=== PATIENT | female | born 2000 | race American Indian/Alaskan Native ===

== ENCOUNTER 2020-01-03 04:31 | Inpatient (IN) | payer MEDICAID ==
[2020-01-03] MEDS ORDERED: Nalbuphine 10 MG/ML Syringe IVPUSH PRN (18:44)
[2020-01-03] MEDS ORDERED: Sodium Chloride 0.9% 10 ML Syringe FLUSH PRN (18:44)
[2020-01-03] MEDS ORDERED: Ondansetron 4 MG/2 ML SDV IVPUSH PRN (18:44)
[2020-01-03] MEDS ORDERED: Oxytocin/Lactated Ringers 10 UNIT/1,000 ML BAG IV SCH ×2 (18:45)
--- NOTE | 2020-01-03 18:53 | PCM.LDHP ---
L&D History of Present Illness - General Date of Service: 01/03/20 Admit Problem/Dx: Patient Status Order with Admit Dx/Problem 01/03/20 18:44 Patient Status [ADT] Routine Admission Diagnosis/Problem Admission Diagnosis/Problem Abnormal quad screen Source of Information: Patient History Limitations: Reports: No Limitations - History of Present Illness Introduction:: Patient is a 19 y/o at 39 4/7 wks presents for IOL. In had an abnormal quad screen showing increased risk for Down Syndrome. Follow up MFM ultrasound and NIPS were normal. Early in there was concern for possible growth restriction, but most recent scans were normal. Patient doing well today. Good FM. 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 LMP (Approximate): Psychiatric History: Reports: Anxiety, Depression - Past Surgical History Other Surgical History Comment: No past surgical history Social & Family History - Family History Family Medical History: Noncontributory - Tobacco Use Smoking Status *Q: Never Smoker - Caffeine Use Caffeine Use: Reports: Coffee - Alcohol Use Alcohol Use History: No - Recreational Drug Use Recreational Drug Use: Yes Drug Use in Last 12 Months: No Recreational Drug Type: Reports: Marijuana/Hashish H&P Review of Systems - Review of Systems: Review Of Systems: See Below General: Reports: No Symptoms Pulmonary: Reports: No Symptoms Cardiovascular: Reports: No Symptoms Gastrointestinal: Reports: No Symptoms Genitourinary: Reports: No Symptoms Musculoskeletal: Reports: No Symptoms Psychiatric: Reports: No Symptoms Neurological: Reports: No Symptoms L&D Exam - Exam Exam: See Below - OB Specific Contraction Intensity: Irritability Movement: Active Heart Tones: Present Heart Tones per Min: 140 Heart Rate (FHR) Variability: Moderate (6-25 bmp) Presentation: Vertex - Kerns Score Kerns Score Cervix Position: Posterior Kerns Score Consistency: Soft Kerns Score Effacement: 51-70% Kerns Score Dilation: 1-2 cm Kerns Score Infant's Station: -2 Kerns Score Total: 6 - Exam General: Alert, Oriented, Cooperative Lungs: Clear to Auscultation, Normal Respiratory Effort Cardiovascular: Regular Rate, Regular Rhythm GI/Abdominal Exam: Soft, Non-Tender Genitourinary: Normal external exam Extremities: Normal Inspection Skin: Warm, Dry, Intact - Patient Data Result Diagrams: 01/03/20 19:10 - Problem List (1) 39 weeks gestation of SNOMED Code(s): 39535157 ICD Code: Z3A.39 - 39 WEEKS GESTATION OF Status: Acute Current Visit: Yes (2) Abnormal quad screen SNOMED Code(s): 301549893, 772869472 ICD Code: O28.0 - ABNORMAL HEMATOLOG FINDING ON SCREENING OF MOTHER Status: Acute Current Visit: Yes Problem List Initiated/Reviewed/Updated: Yes Orders Last 24hrs: Active Orders 24 hr Category Date Time Status Patient Status [ADT] Routine ADT 01/03/20 18:44 Ordered Communication Order [RC] ASDIRECTED Care 01/03/20 18:44 Ordered Communication Order [RC] ASDIRECTED Care 01/03/20 18:44 Ordered Communication Order [RC] ASDIRECTED Care 01/03/20 18:44 Ordered Heart Tones [RC] ASDIRECTED Care 01/03/20 18:45 Ordered Monitoring [RC] INTERMITTENT Care 01/03/20 18:44 Ordered Non Stress Test [RC] PER UNIT ROUTINE Care 01/03/20 18:44 Ordered Notify Provider [RC] ASDIRECTED Care 01/03/20 18:44 Ordered Notify Provider [RC] PRN Care 01/03/20 18:44 Ordered Peripheral IV Care [RC] . DIRECTED Care 01/03/20 18:45 Ordered Up ad Luly [RC] ASDIRECTED Care 01/03/20 18:45 Ordered Vaginal Exam [RC] ASDIRECTED Care 01/03/20 18:44 Ordered Vital Signs [RC] ASDIRECTED Care 01/03/20 18:44 Ordered Regular Diet [DIET] Diet 01/03/20 Dinner Ordered CBC W/O DIFF,HEMOGRAM [HEME] Routine Lab 01/03/20 18:44 Ordered RAPID PLASMA REAGIN,RPR [CHEM] Routine Lab 01/03/20 18:44 Ordered TYPE AND SCREEN [BBK] Routine Lab 01/03/20 18:44 Ordered Lactated Ringers [Ringers, Lactated] 1,000 ml Med 01/03/20 18:45 Ordered IV ASDIRECTED Nalbuphine [Nubain] Med 01/03/20 18:44 Ordered 10 mg IVPUSH Q2H PRN Ondansetron [Zofran] Med 01/03/20 18:44 Ordered 4 mg IVPUSH Q4H PRN Oxytocin/Lactated Ringers [Pitocin in LR 10 Units/1,000 Med 01/03/20 18:45 Ordered ML] 10 unit in 1,000 ml IV .CONTINUOUS Oxytocin/Lactated Ringers [Pitocin in LR 10 Units/1,000 Med 01/03/20 18:45 Ordered ML] 10 unit in 1,000 ml IV TITRATE Sodium Chloride 0.9% [Saline Flush] Med 01/03/20 18:44 Ordered 10 ml FLUSH ASDIRECTED PRN Electronic Heart Tones Ext w TOCO [WOMSER] Oth 01/03/20 18:44 Ordered Routine Electronic Heart Tones Internal [WOMSER] Per Unit Oth 01/03/20 18:44 Ordered Routine Peripheral IV Insertion Adult [OM.PC] Routine Oth 01/03/20 18:44 Ordered Resuscitation Status Routine Resus Stat 01/03/20 18:44 Ordered Assessment/Plan Comment:: 19 y/o at 39 4/7 wks presents for IOL for abnormal quad screen * Labs done * GBS negative * Krishnamurthy bulb placed. Will also start pitocin. Will AROM once krishnamurthy bulb out * Pain management per patient preference * Anticipate
[2020-01-03] MEDS: Lactated Ringers 1,000 ML IV SCH (20:38)
[2020-01-03] MEDS ORDERED: fentaNYL 100 MCG/2 ML SDV ONE (23:11)
[2020-01-03] MEDS ORDERED: diphenhydrAMINE 50 MG/ML SDV IVPUSH PRN (23:23)
[2020-01-03] MEDS ORDERED: Bupivacaine/fentaNYL/NS 100 ML Bag EPIDUR PRN (23:23)
[2020-01-03] MEDS ORDERED: fentaNYL 100 MCG/2 ML SDV EPIDUR PRN (23:23)
[2020-01-03] MEDS ORDERED: ePHEDrine 50 MG/ML SDV IVPUSH PRN (23:23)
[2020-01-04] MEDS ORDERED: Bupivacaine 0.25% 10 ML SDV ONE
--- NOTE | 2020-01-04 00:30 | PCM.PREANE ---
Preanesthetic Assessment - Procedure Proposed Procedure: jameel - Anesthesia/Transfusion/Family Hx Anesthesia History: Prior Anesthesia Without Reaction Family History of Anesthesia Reaction: No Transfusion History: No Prior Transfusion(s) - Review of Systems General: No Symptoms Pulmonary: No Symptoms Cardiovascular: No Symptoms Gastrointestinal: No Symptoms Neurological: No Symptoms Other: Reports: Anxiety - Physical Assessment Vital Signs: Last Vital Signs Temp 98.1 F 01/03/20 21:00 Pulse 78 01/03/20 21:00 Resp 16 01/03/20 21:00 BP 128/73 01/03/20 21:00 Pulse Ox Height: 5 ft 2 in Weight: 75.75 kg ASA Class: 2 Mental Status: Alert & Oriented x3 Airway Class: Mallampati = 1 Dentition: Reports: Normal Dentition Thyro-Mental Finger Breadths: 3 Mouth Opening Finger Breadths: 3 ROM/Head Extension: Full Lungs: Clear to Auscultation, Normal Respiratory Effort Cardiovascular: Regular Rate, Regular Rhythm - Lab Values: Laboratory Last Values WBC 10.65 K/mm3 (3.98-10.04) H 01/03/20 19:10 RBC 4.63 M/mm3 (3.98-5.22) 01/03/20 19:10 Hgb 11.7 gm/dl (11.2-15.7) 01/03/20 19:10 Hct 36.9 % (34.1-44.9) 01/03/20 19:10 MCV 79.7 fl (79.4-94.8) 01/03/20 19:10 MCH 25.3 pg (25.6-32.2) L 01/03/20 19:10 MCHC 31.7 g/dl (32.2-35.5) L 01/03/20 19:10 RDW Std Deviation 54.5 fL (36.4-46.3) H 01/03/20 19:10 Plt Count 234 K/mm3 (182-369) 01/03/20 19:10 MPV 9.8 fl (9.4-12.3) 01/03/20 19:10 RPR Non-reactive (NONREACTIVE) 01/03/20 19:10 Blood Type O POSITIVE 01/03/20 19:10 Gel Antibody Screen Negative 01/03/20 19:10 - Allergies Allergies/Adverse Reactions: Allergies Allergy/AdvReac Type Severity Reaction Status Date / Time No Known Allergies Allergy Verified 06/16/19 21:43 - Blood Blood Available: No - Acknowledgements Anesthesia Type Planned: Epidural Pt an Appropriate Candidate for the Planned Anesthesia: Yes Alternatives and Risks of Anesthesia Discussed w Pt/Guardian: Yes Pt/Guardian Understands and Agrees with Anesthesia Plan: Yes PreAnesthesia Questionnaire HEENT History: Reports: Impaired Vision Other HEENT History: glasses Cardiovascular History: Reports: None Respiratory History: Reports: None Gastrointestinal History: Reports: None [employer]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: Psychiatric History: Reports: Anxiety, Depression - Past Surgical History Other Surgical History Comment: No past surgical history - SUBSTANCE USE Smoking Status *Q: Former Smoker (2019) Tobacco Use Within Last Twelve Months: No Second Hand Smoke Exposure: No Days Per Week of Alcohol Use: 0 Recreational Drug Use History: Yes Recreational Drug Type: Reports: Marijuana/Hashish (beginning of preg) - HOME MEDS Home Medications: Home Meds Pnv No.95/Ferrous Fum/Folic AC [ Caplet] 1 tab PO DAILY 01/03/20 [ History] - CURRENT (IN HOUSE) MEDS Current Meds: Current Medications Diphenhydramine HCl (Benadryl) 25 mg IVPUSH Q6H PRN PRN Reason: pruritis Ephedrine Sulfate (Ephedrine Sulfate) 5 mg IVPUSH ASDIRECTED PRN PRN Reason: Hypotension Fentanyl (Sublimaze) 100 mcg EPIDUR Q3H PRN PRN Reason: Pain Last Admin: 01/04/20 00:16 Dose: 100 mcg Fentanyl/Bupivacaine HCl (Fentanyl/Bupivacaine/Ns 2 Mcg-0.125% 100 Ml) 100 ml EPIDUR ASDIRECTED PRN PRN Reason: Pain Last Admin: 01/04/20 00:16 Dose: 100 ml Lactated Ringer's (Ringers, Lactated) 1,000 mls @ 40 mls/hr IV ASDIRECTED HIRA Last Admin: 01/03/20 20:38 Dose: 40 mls/hr Oxytocin/Lactated Ringer's (Pitocin In Lr 10 Units/1,000 Ml) 10 unit in 1,000 mls @ 12 mls/hr IV TITRATE HIRA; Protocol Last Titration: 01/03/20 23:15 Dose: 10 munits/min, 60 mls/hr Oxytocin/Lactated Ringer's (Pitocin In Lr 10 Units/1,000 Ml) 10 unit in 1,000 mls @ 500 mls/hr IV .CONTINUOUS HIRA Nalbuphine HCl (Nubain) 10 mg IVPUSH Q2H PRN PRN Reason: Pain Ondansetron HCl (Zofran) 4 mg IVPUSH Q4H PRN PRN Reason: Nausea/Vomiting Sodium Chloride (Saline Flush) 10 ml FLUSH ASDIRECTED PRN PRN Reason: Keep Vein Open Discontinued Medications Fentanyl (Sublimaze) Confirm Administered Dose 100 mcg .ROUTE .[facility] ONE Stop: 01/03/20 23:12
[2020-01-04] MEDS: Lactated Ringers 1,000 ML IV SCH ×2 (00:41→00:42)
[2020-01-04] MEDS ORDERED: Misoprostol 200 MCG Tab ONE (04:39)
--- NOTE | 2020-01-04 04:54 | PCM.DEL ---
L & D Note - General Info Date of Service: 01/04/20 - Delivery Note Labor: Induced by ARM, Induced by Oxytocin Cervical Ripening Method: Balloon Device Delivery Outcome: Livebirth Infant Delivery Method: Spontaneous Vaginal Delivery-Single Infant Delivery Mode: Spontaneous Presentation: Right Occiput Anterior (STACY) Nuchal Cord: Present (x2), Reduced Anesthesia Type: Epidural Amniotic Fluid Description: Clear Episiotomy Type: None Laceration: None Placenta: Intact, Spontaneous Cord: 3 Vessels Estimated Blood Loss: 200 Resuscitation Needed: Yes [place]: Bulb Syringe, Stimulated, Warmed, [place] Used, Warmer Used Delivery Comments (Free Text/Narrative):: Patient found to be complete and began pushing. With maternal pushing effort head delivered from an STACY presentation. Nuchal cord present x2 and reduced. With gentle downward traction the shoulders and body delivered. placed on maternal abdomen. Cord clamped and cut. Cord blood obtained. Placenta allowed time to separate and expelled intact. Inspection of the perineum showed no lacerations. Slight bleeding noted at this time which responded to fundal massage, pitocin, and buccal cytotec. - General Info Date of Service: 01/04/20 - Patient Data Vitals - Most Recent: Last Vital Signs Temp 36.7 C 01/03/20 21:00 Pulse 78 01/03/20 21:00 Resp 16 01/03/20 21:00 BP 128/73 01/03/20 21:00 Pulse Ox Weight - Most Recent: 75.75 kg - Problem List & Annotations (1) 39 weeks gestation of SNOMED Code(s): 41659032 Code(s): Z3A.39 - 39 WEEKS GESTATION OF Status: Acute Current Visit: Yes (2) Abnormal quad screen SNOMED Code(s): 788301457, 196496327 Code(s): O28.0 - ABNORMAL HEMATOLOG FINDING ON SCREENING OF MOTHER Status: Acute Current Visit: Yes (3) Vaginal delivery SNOMED Code(s): 269750687 Code(s): O80 - ENCOUNTER FOR FULL-TERM UNCOMPLICATED DELIVERY Status: Acute Current Visit: Yes - Problem List Review Problem List Initiated/Reviewed/Updated: Yes - My Orders Last 24 Hours: My Active Orders 01/03/20 18:44 Patient Status [ADT] Routine Communication Order [RC] ASDIRECTED Communication Order [RC] ASDIRECTED Communication Order [RC] ASDIRECTED Notify Provider [RC] ASDIRECTED Notify Provider [RC] PRN Vital Signs [RC] ASDIRECTED Nalbuphine [Nubain] 10 mg IVPUSH Q2H PRN Ondansetron [Zofran] 4 mg IVPUSH Q4H PRN Sodium Chloride 0.9% [Saline Flush] 10 ml FLUSH ASDIRECTED PRN Electronic Heart Tones Ext w TOCO [WOMSER] Routine Electronic Heart Tones Internal [WOMSER] Per Unit Routine Peripheral IV Insertion Adult [OM.PC] Routine Resuscitation Status Routine 01/03/20 18:45 Peripheral IV Care [RC] . DIRECTED Up ad Luly [RC] ASDIRECTED Lactated Ringers [Ringers, Lactated] 1,000 ml IV ASDIRECTED Oxytocin/Lactated Ringers [Pitocin in LR 10 Units/1,000 ML] 10 unit in 1,000 ml IV .CONTINUOUS Oxytocin/Lactated Ringers [Pitocin in LR 10 Units/1,000 ML] 10 unit in 1,000 ml IV TITRATE 01/03/20 Dinner Regular Diet [DIET] - Assessment Assessment:: 19 y/o G2 now P2002 PPD#0 from at 39 5/7 wks - Plan Plan:: * Routine cares * Breast feeding * Discharge home in 1-2 days
[2020-01-04] MEDS ORDERED: Misoprostol 200 MCG Tab PO STA (04:57)
[2020-01-04] MEDS ORDERED: Docusate Sodium 100 MG Cap PO PRN (06:25)
[2020-01-04] MEDS ORDERED: Acetaminophen 325 MG Tab PO PRN (06:25)
[2020-01-04] MEDS ORDERED: Benzocaine/Menthol 20%-0.5% Spray 56 GM Canister TOP PRN (06:25)
[2020-01-04] MEDS ORDERED: Witch Hazel Medicated Pads 40/Jar TOP PRN (06:25)
[2020-01-04] MEDS: Ibuprofen 600 MG Tab PO PRN (11:50)
[2020-01-05] MEDS: Ibuprofen 600 MG Tab PO PRN (00:45)
--- NOTE | 2020-01-05 07:46 | PCM.DCSUM1 ---
Discharge Summary - Discharge Data Discharge Date: 01/05/20 Discharge Disposition: Home, Self-Care 01 Condition: Good - Referral to Home Health Primary Care Physician: Marilu St MD - Discharge Diagnosis/Problem(s) (1) 39 weeks gestation of SNOMED Code(s): 39913335 ICD Code: Z3A.39 - 39 WEEKS GESTATION OF Status: Acute Current Visit: Yes (2) Abnormal quad screen SNOMED Code(s): 547234296, 593443526 ICD Code: O28.0 - ABNORMAL HEMATOLOG FINDING ON SCREENING OF MOTHER Status: Acute Current Visit: Yes (3) Vaginal delivery SNOMED Code(s): 258680735 ICD Code: O80 - ENCOUNTER FOR FULL-TERM UNCOMPLICATED DELIVERY Status: Acute Current Visit: Yes - Patient Summary/Data Complications: None Consults: None Recommended Follow-up Testing/Procedures: Follow up in 3 weeks for check Hospital Course: 19 y/o presented at 39 4/7 wks for IOL for findings of abnormal quad screen in . Subsequent follow up with MFM normal and initial screening thought to be a false positive. Was recommended for IOL between 39- 40 wks. IOL done with krishnamurthy bulb, pitocin, and then AROM once able. She made good change to complete dilation and underwent an uncomplicated . See delivery note for full details. was discharged home on PPD#1 - Patient Instructions Diet: Regular Diet as Tolerated Activity: As Tolerated Activity, Other: Pelvic rest for 6 weeks Driving: May Drive Today Showering/Bathing: May Shower Showering/Bathing, Other: May Bathe Notify Provider of: Fever, Increased Pain, Swelling and Redness, Drainage, Nausea and/or Vomiting - Discharge Plan *PRESCRIPTION DRUG MONITORING PROGRAM REVIEWED*: No *COPY OF PRESCRIPTION DRUG MONITORING REPORT IN PATIENT MICHAELA: No Home Medications: Home Meds Pnv No.95/Ferrous Fum/Folic AC [ Caplet] 1 tab PO DAILY 01/03/20 [ History] Docusate Sodium [Colace] 100 mg PO BID PRN cap 01/04/20 [Rx] Ibuprofen [Motrin] 600 mg PO Q6H PRN tablet 01/04/20 [Rx] Referrals: Marilu St MD [Primary Care Provider] - (3 weeks for check ) - Discharge Summary/Plan Comment DC Time >30 min.: No - Patient Data Vitals - Most Recent: Last Vital Signs Temp 36.4 C 01/05/20 07:30 Pulse 75 01/05/20 07:30 Resp 16 01/05/20 07:30 BP 100/87 01/05/20 07:30 Pulse Ox 96 01/05/20 07:30 Weight - Most Recent: 75.75 kg Med Orders - Current: Current Medications Acetaminophen (Tylenol) 650 mg PO Q4H PRN PRN Reason: mild pain or fever Benzocaine/Menthol (Dermoplast Pain Relief [place]) 0 gm TOP ASDIRECTED PRN PRN Reason: Perineal Comfort Measure Last Admin: 01/04/20 11:49 Dose: 1 canister Docusate Sodium (Colace) 100 mg PO BID PRN PRN Reason: Constipation Last Admin: 01/04/20 11:51 Dose: 100 mg Ibuprofen (Motrin) 600 mg PO Q6H PRN PRN Reason: Mild pain or fever Last Admin: 01/05/20 00:45 Dose: 600 mg Witch Umm (Tucks) 1 pad TOP ASDIRECTED PRN PRN Reason: Perineal Comfort Measure Last Admin: 01/04/20 11:49 Dose: 1 can Discontinued Medications Diphenhydramine HCl (Benadryl) 25 mg IVPUSH Q6H PRN PRN Reason: pruritis Ephedrine Sulfate (Ephedrine Sulfate) 5 mg IVPUSH ASDIRECTED PRN PRN Reason: Hypotension Fentanyl (Sublimaze) Confirm Administered Dose 100 mcg .ROUTE .STK-MED ONE Stop: 01/03/20 23:12 Fentanyl (Sublimaze) 100 mcg EPIDUR Q3H PRN PRN Reason: Pain Last Admin: 01/04/20 00:16 Dose: 100 mcg Fentanyl/Bupivacaine HCl (Fentanyl/Bupivacaine/Ns 2 Mcg-0.125% 100 Ml) 100 ml EPIDUR ASDIRECTED PRN PRN Reason: Pain Last Admin: 01/04/20 00:16 Dose: 100 ml Lactated Ringer's (Ringers, Lactated) 1,000 mls @ 40 mls/hr IV ASDIRECTED HIRA Last Admin: 01/04/20 00:42 Dose: 40 mls/hr Oxytocin/Lactated Ringer's (Pitocin In Lr 10 Units/1,000 Ml) 10 unit in 1,000 mls @ 12 mls/hr IV TITRATE HIRA; Protocol Last Titration: 01/04/20 02:01 Dose: 14 munits/min, 84 mls/hr Oxytocin/Lactated Ringer's (Pitocin In Lr 10 Units/1,000 Ml) 10 unit in 1,000 mls @ 500 mls/hr IV .CONTINUOUS HIRA Misoprostol (Cytotec) 600 mcg PO NOW STA Stop: 01/04/20 04:58 Last Admin: 01/04/20 04:40 Dose: 600 mcg Misoprostol (Cytotec) Confirm Administered Dose 600 mcg .ROUTE .STK-MED ONE Stop: 01/04/20 04:40 Nalbuphine HCl (Nubain) 10 mg IVPUSH Q2H PRN PRN Reason: Pain Ondansetron HCl (Zofran) 4 mg IVPUSH Q4H PRN PRN Reason: Nausea/Vomiting Last Admin: 01/04/20 05:45 Dose: 4 mg Sodium Chloride (Saline Flush) 10 ml FLUSH ASDIRECTED PRN PRN Reason: Keep Vein Open
--- NOTE | 2020-01-05 07:46 | PCM.PNPP ---
- General Info Date of Service: 01/05/20 Functional Status: Reports: Pain Controlled, Tolerating Diet, Ambulating, Urinating - Review of Systems General: Reports: No Symptoms Pulmonary: Reports: No Symptoms Cardiovascular: Reports: No Symptoms Gastrointestinal: Reports: No Symptoms Genitourinary: Reports: No Symptoms Musculoskeletal: Reports: No Symptoms Neurological: Reports: No Symptoms - Patient Data Vital Signs - Most Recent: Last Vital Signs Temp 36.4 C 01/05/20 07:30 Pulse 75 01/05/20 07:30 Resp 16 01/05/20 07:30 BP 100/87 01/05/20 07:30 Pulse Ox 96 01/05/20 07:30 Weight - Most Recent: 75.75 kg Med Orders - Current: Current Medications Acetaminophen (Tylenol) 650 mg PO Q4H PRN PRN Reason: mild pain or fever Benzocaine/Menthol (Dermoplast Pain Relief [place]) 0 gm TOP ASDIRECTED PRN PRN Reason: Perineal Comfort Measure Last Admin: 01/04/20 11:49 Dose: 1 canister Docusate Sodium (Colace) 100 mg PO BID PRN PRN Reason: Constipation Last Admin: 01/04/20 11:51 Dose: 100 mg Ibuprofen (Motrin) 600 mg PO Q6H PRN PRN Reason: Mild pain or fever Last Admin: 01/05/20 00:45 Dose: 600 mg Witch Umm (Tucks) 1 pad TOP ASDIRECTED PRN PRN Reason: Perineal Comfort Measure Last Admin: 01/04/20 11:49 Dose: 1 can Discontinued Medications Diphenhydramine HCl (Benadryl) 25 mg IVPUSH Q6H PRN PRN Reason: pruritis Ephedrine Sulfate (Ephedrine Sulfate) 5 mg IVPUSH ASDIRECTED PRN PRN Reason: Hypotension Fentanyl (Sublimaze) Confirm Administered Dose 100 mcg .ROUTE .STK-MED ONE Stop: 01/03/20 23:12 Fentanyl (Sublimaze) 100 mcg EPIDUR Q3H PRN PRN Reason: Pain Last Admin: 01/04/20 00:16 Dose: 100 mcg Fentanyl/Bupivacaine HCl (Fentanyl/Bupivacaine/Ns 2 Mcg-0.125% 100 Ml) 100 ml EPIDUR ASDIRECTED PRN PRN Reason: Pain Last Admin: 01/04/20 00:16 Dose: 100 ml Lactated Ringer's (Ringers, Lactated) 1,000 mls @ 40 mls/hr IV ASDIRECTED HIRA Last Admin: 01/04/20 00:42 Dose: 40 mls/hr Oxytocin/Lactated Ringer's (Pitocin In Lr 10 Units/1,000 Ml) 10 unit in 1,000 mls @ 12 mls/hr IV TITRATE HIRA; Protocol Last Titration: 01/04/20 02:01 Dose: 14 munits/min, 84 mls/hr Oxytocin/Lactated Ringer's (Pitocin In Lr 10 Units/1,000 Ml) 10 unit in 1,000 mls @ 500 mls/hr IV .CONTINUOUS HIRA Misoprostol (Cytotec) 600 mcg PO NOW STA Stop: 01/04/20 04:58 Last Admin: 01/04/20 04:40 Dose: 600 mcg Misoprostol (Cytotec) Confirm Administered Dose 600 mcg .ROUTE .STK-MED ONE Stop: 01/04/20 04:40 Nalbuphine HCl (Nubain) 10 mg IVPUSH Q2H PRN PRN Reason: Pain Ondansetron HCl (Zofran) 4 mg IVPUSH Q4H PRN PRN Reason: Nausea/Vomiting Last Admin: 01/04/20 05:45 Dose: 4 mg Sodium Chloride (Saline Flush) 10 ml FLUSH ASDIRECTED PRN PRN Reason: Keep Vein Open - Interaction Infant Disposition, : in Room with Family Interaction: Holding Infant Infant Feeding: Bottle Fed Infant Support Person: Significant Other - Recovery Exam Fundal Tone: Firm Fundal Level: 1 Fingerbreadths Below Umbilicus Fundal Placement: Midline Lochia Amount: Scant Lochia Color: Rubra/Red Perineum Description: Intact, Minimal Bruising/Swelling Episiotomy/Laceration: None Bladder Status: Voiding Urinary Elimination: Voided - Exam General: Alert, Oriented, Cooperative GI/Abdominal Exam: Soft, Non-Tender Extremities: Normal Inspection Skin: Warm, Dry, Intact - Problem List & Annotations (1) 39 weeks gestation of SNOMED Code(s): 46922633 Code(s): Z3A.39 - 39 WEEKS GESTATION OF Status: Acute Current Visit: Yes (2) Abnormal quad screen SNOMED Code(s): 039000388, 907339675 Code(s): O28.0 - ABNORMAL HEMATOLOG FINDING ON SCREENING OF MOTHER Status: Acute Current Visit: Yes (3) Vaginal delivery SNOMED Code(s): 648840123 Code(s): O80 - ENCOUNTER FOR FULL-TERM UNCOMPLICATED DELIVERY Status: Acute Current Visit: Yes - Problem List Review Problem List Initiated/Reviewed/Updated: Yes - My Orders Last 24 Hours: My Active Orders 01/04/20 Breakfast Regular Diet [DIET] 01/05/20 06:25 Heat Therapy [OM.PC] PRN 01/05/20 07:45 Ready for Discharge [RC] PER UNIT ROUTINE - Assessment Assessment:: 19 y/o G2 now P2002 PPD#1 from at 39 5/7 wks - Plan Plan:: * Routine cares * Bottle feeding * Discharge home today
== END 2020-01-05 13:55 | disposition home or self-care (01) | DRG 807 ==
LOC: JD.OB 04:31 → OBSVTOIN 01-04 04:31 → JD.OB 01-04 04:31
PROVIDERS: ADMIT Obstetrics & Gynecology; ATTEND Obstetrics & Gynecology
PROC: 10E0XZZ Delivery of Products of Conception, External Approach (ICD-10-PCS; principal; 2020-01-04)
PROC: 3E033VJ Introduction of Other Hormone into Peripheral Vein, Percutaneous Approach (ICD-10-PCS; 2020-01-04)
PROC: 10907ZC Drainage of Amniotic Fluid, Therapeutic from Products of Conception, Via Natural or Artificial Opening (ICD-10-PCS; 2020-01-04)
PROC: 0U7C7ZZ Dilation of Cervix, Via Natural or Artificial Opening (ICD-10-PCS; 2020-01-04)
PROC: 3E0R3BZ Introduction of Anesthetic Agent into Spinal Canal, Percutaneous Approach (ICD-10-PCS; 2020-01-04)
DX: O99.354 Diseases of the nervous system complicating childbirth (principal); Z37.0 Single live birth; Z3A.39 39 weeks gestation of pregnancy; Z79.899 Other long term (current) drug therapy; F41.9 Anxiety disorder, unspecified; O69.81X0 Labor and delivery complicated by cord around neck, without compression, not applicable or unspecified; O28.0 Abnormal hematological finding on antenatal screening of mother; Z87.891 Personal history of nicotine dependence
CPT/HCPCS: 01967; 36415; 51702; 59025; 59409; 85027; 86592; 86850; 86900; 86901; A9270-GY; J2405; J2590; J3010; J3490; J7120

== ENCOUNTER 2020-08-01 01:34 | Emergency (ER) | payer MEDICAID ==
[2020-08-01] MEDS ORDERED: Ondansetron 4 MG/2 ML SDV IVPUSH ONE (01:48)
[2020-08-01] MEDS ORDERED: Sodium Chloride 0.9% 10 ML Syringe FLUSH PRN (01:48)
[2020-08-01] MEDS ORDERED: LORazepam 2 MG/ML SDV IVPUSH ONE (01:49)
[2020-08-01] MEDS ORDERED: Sodium Chloride 0.9% 1,000 ML IV SCH (02:00)
--- NOTE | 2020-08-01 02:39 | EDM.PDOC ---
ED HPI GENERAL MEDICAL PROBLEM - General Chief Complaint: Chest Pain Stated Complaint: CHEST PAIN/VOMITING Time Seen by Provider: 08/01/20 01:45 Source of Information: Reports: Patient History Limitations: Reports: No Limitations - History of Present Illness INITIAL COMMENTS - FREE TEXT/NARRATIVE: The patient presents for chest pain, nausea and vomiting. This started about 2 hours ago. She also has some anxiety and she is hyperventilating. She has no fever, chills, cough, congestion, runny nose, shortness of breath. Onset: Gradual Duration: Hour(s): (2) Location: Reports: Chest Quality: Reports: Sharp Severity: Moderate Improves with: Reports: None Worsens with: Reports: None Associated Symptoms: Reports: Chest Pain, Nausea/Vomiting. Denies: Cough, Fever/Chills, Headaches, Shortness of Breath Chest Pain Score (Numeric/FACES): 8 - Related Data Allergies Allergy/AdvReac Type Severity Reaction Status Date / Time No Known Allergies Allergy Verified 08/01/20 01:50 Home Meds: Home Meds Pnv No.95/Ferrous Fum/Folic AC [ Caplet] 1 tab PO DAILY 01/03/20 [History] Docusate Sodium [Colace] 100 mg PO BID PRN cap 01/04/20 [Rx] Ibuprofen [Motrin] 600 mg PO Q6H PRN tablet 01/04/20 [Rx] Past Medical History HEENT History: Reports: Impaired Vision Other HEENT History: glasses Cardiovascular History: Reports: None Respiratory History: Reports: None Gastrointestinal History: Reports: None 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 Denies: Abdominal Pain ED EXAM, GENERAL - Physical Exam Exam: See Below Exam Limited By: No Limitations General Appearance: Alert, Moderate Distress Ears: Normal External Exam Nose: Normal Inspection Head: Atraumatic, Normocephalic Neck: Normal Inspection, Supple, Non-Tender Respiratory/Chest: No Respiratory Distress, Lungs Clear, Normal Breath Sounds Cardiovascular: Regular Rate, Rhythm, No Edema, No Murmur GI/Abdominal: Soft, Non-Tender, No Organomegaly, No Mass Extremities: Normal Inspection Course - Vital Signs Last Recorded V/S: Last Vital Signs Temp 98.7 F 08/01/20 01:47 Pulse 74 08/01/20 01:47 Resp 20 08/01/20 01:47 BP 133/93 H 08/01/20 01:47 Pulse Ox 100 08/01/20 01:47 - Orders/Labs/Meds Orders: Active Orders 24 hr Category Date Time Status Cardiac Monitoring [RC] . DIRECTED Care 08/01/20 01:48 Active EKG Documentation Completion [RC] ASDIRECTED Care 08/01/20 02:44 Active Peripheral IV Care [RC] . DIRECTED Care 08/01/20 01:48 Active CXR [Chest 1V Frontal] [CR] Stat Exams 08/01/20 02:43 Taken Sodium Chloride 0.9% [Normal Saline] 1,000 ml Med 08/01/20 02:00 Active IV .BOLUS Sodium Chloride 0.9% [Saline Flush] Med 08/01/20 01:48 Active 10 ml FLUSH ASDIRECTED PRN ED Antiemetic Medication Reflex [OM.PC] Stat Oth 08/01/20 01:48 Ordered Peripheral IV Insertion Adult [OM.PC] Stat Oth 08/01/20 01:48 Ordered EKG 12 Lead [EK] Stat Ther 08/01/20 02:44 Ordered Medication Orders Sodium Chloride (Normal Saline) 1,000 mls @ 1,000 mls/hr IV .BOLUS HIRA Last Admin: 08/01/20 02:00 Dose: 1,000 mls/hr Documented by: GLENROY Sodium Chloride (Saline Flush) 10 ml FLUSH ASDIRECTED PRN PRN Reason: Keep Vein Open Last Admin: 08/01/20 02:00 Dose: 10 ml Documented by: GLENROY Labs: Laboratory Tests 08/01/20 08/01/20 08/01/20 Range/Units 01:55 01:55 01:55 WBC 11.48 H (3.98-10.04) K/mm3 RBC 4.67 (3.98-5.22) M/mm3 Hgb 12.7 (11.2-15.7) gm/dl Hct 38.4 (34.1-44.9) % MCV 82.2 (79.4-94.8) fl MCH 27.2 (25.6-32.2) pg MCHC 33.1 (32.2-35.5) g/dl RDW Std Deviation 38.3 (36.4-46.3) fL Plt Count 253 (182-369) K/mm3 MPV 9.6 (9.4-12.3) fl Neut % (Auto) 80.5 H (34.0-71.1) % Lymph % (Auto) 13.3 L (19.3-51.7) % Sutter % (Auto) 4.7 (4.7-12.5) % Eos % (Auto) 1.1 (0.7-5.8) Baso % (Auto) 0.2 (0.1-1.2) % Neut # (Auto) 9.24 H (1.56-6.13) K/mm3 Lymph # (Auto) 1.53 (1.18-3.74) K/mm3 Sutter # (Auto) 0.54 H (0.24-0.36) K/mm3 Eos # (Auto) 0.13 (0.04-0.36) K/mm3 Baso # (Auto) 0.02 (0.01-0.08) K/mm3 Manual Slide Review Normal smear Sodium 141 (136-145) mEq/L Potassium 3.3 L (3.5-5.1) mEq/L Chloride 105 (98-107) mEq/L Carbon Dioxide 25 (21-32) mEq/L Anion Gap 14.3 (5-15) BUN 12 (7-18) mg/dL Creatinine 0.7 (0.55-1.02) mg/dL Est Cr Clr Drug Dosing TNP Estimated GFR (MDRD) > 60 (>60) mL/min BUN/Creatinine Ratio 17.1 (14-18) Glucose 118 H (74-106) mg/dL Calcium 9.1 (8.5-10.1) mg/dL Total Bilirubin 0.2 (0.2-1.0) mg/dL AST 22 (15-37) U/L ALT 36 (14-59) U/L Alkaline Phosphatase 155 H (46-116) U/L Total Protein 7.5 (6.4-8.2) g/dl Albumin 4.2 (3.4-5.0) g/dl Globulin 3.3 gm/dL Albumin/Globulin Ratio 1.3 (1-2) Lipase 127 (73-393) U/L HCG, Qual Negative (NEGATIVE) Meds: Medications Generic Name Dose Route Start Last Admin Trade Name Freq PRN Reason Stop Dose Admin Sodium Chloride 1,000 mls @ 1,000 mls/hr 08/01/20 02:00 08/01/20 02:00 Normal Saline IV 1,000 mls/hr .BOLUS HIRA Administration Sodium Chloride 10 ml 08/01/20 01:48 08/01/20 02:00 Saline Flush FLUSH 10 ml ASDIRECTED PRN Administration Keep Vein Open Discontinued Medications Generic Name Dose Route Start Last Admin Trade Name Freq PRN Reason Stop Dose Admin Famotidine 20 mg 08/01/20 02:43 08/01/20 03:04 Pepcid IVPUSH 08/01/20 02:44 20 mg ONETIME ONE Administration Lorazepam 1 mg 08/01/20 01:49 08/01/20 02:00 Ativan IVPUSH 08/01/20 01:50 1 mg ONETIME ONE Administration Ondansetron HCl 4 mg 08/01/20 01:48 08/01/20 02:00 Zofran IVPUSH 08/01/20 01:49 4 mg ONETIME ONE Administration - Re-Assessments/Exams Free Text/Narrative Re-Assessment/Exam: 08/01/20 02:38 I ordered an IV NS 1L bolus, zofran 4mg IV, ativan 1mg IV, and labs. 08/01/20 02:41 Her WBC was slightly elevated at 11.48. Her K was low at 3.3. Her alk phos was elevated at 155. Her lipase is normal. Her HCG is negative. 08/01/20 03:06 She still had more pain so I ordered pepcid 20mg IV and did an EKG and CXR. Her EKG shows a NSR with no acute changes. Her CXR looks good. I will discharge her home. Departure - Departure Time of Disposition: 03:10 Disposition: Home, Self-Care 01 Condition: Good Clinical Impression: Atypical chest pain Dyspnea Qualifiers: Dyspnea type: other forms of dyspnea Qualified Code(s): R06.09 - Other forms of dyspnea Referrals: PCP,None [Primary Care Provider] - Forms: ED Department Discharge Additional Instructions: Go home and rest. Take tylenol or motrin for pain. Drink plenty of fluids. Please return if you are worse. Sepsis Event Note (ED) - Evaluation Sepsis Screening Result: No Definite Risk - Focused Exam Vital Signs: Vital Signs Temp Pulse Resp BP Pulse Ox 08/01/20 01:47 98.7 F 74 20 133/93 H 100 - My Orders Last 24 Hours: My Active Orders 08/01/20 01:48 Cardiac Monitoring [RC] . DIRECTED Peripheral IV Care [RC] . DIRECTED Sodium Chloride 0.9% [Saline Flush] 10 ml FLUSH ASDIRECTED PRN ED Antiemetic Medication Reflex [OM.PC] Stat Peripheral IV Insertion Adult [OM.PC] Stat 08/01/20 02:00 Sodium Chloride 0.9% [Normal Saline] 1,000 ml IV .BOLUS 08/01/20 02:43 CXR [Chest 1V Frontal] [CR] Stat 08/01/20 02:44 EKG Documentation Completion [RC] ASDIRECTED EKG 12 Lead [EK] Stat - Assessment/Plan Last 24 Hours: My Active Orders 08/01/20 01:48 Cardiac Monitoring [RC] . DIRECTED Peripheral IV Care [RC] . DIRECTED Sodium Chloride 0.9% [Saline Flush] 10 ml FLUSH ASDIRECTED PRN ED Antiemetic Medication Reflex [OM.PC] Stat Peripheral IV Insertion Adult [OM.PC] Stat 08/01/20 02:00 Sodium Chloride 0.9% [Normal Saline] 1,000 ml IV .BOLUS 08/01/20 02:43 CXR [Chest 1V Frontal] [CR] Stat 08/01/20 02:44 EKG Documentation Completion [RC] ASDIRECTED EKG 12 Lead [EK] Stat
[2020-08-01] MEDS ORDERED: Famotidine 20 MG/2 ML SDV IVPUSH ONE (02:43)
--- NOTE | 2020-08-01 07:36 | CR ---
Chest: Frontal view of the chest was obtained. Comparison: No prior chest imaging. Heart size and mediastinum are normal. Lungs are clear with no acute parenchymal change. Bony structures are grossly intact. Impression: 1. Nothing acute is seen on frontal chest x-ray. Diagnostic code #1 Study was dictated in MDT
== END 2020-08-01 03:23 | disposition home or self-care (01) ==
LOC: JD.ED 01:34
DX: R07.89 Other chest pain (principal); R06.09 Other forms of dyspnea
CPT/HCPCS: 36415; 71045; 80053; 83690; 84703; 85025; 93005; 96361; 96374; 96375; 99285; J2060; J2405; J3490; J7030; 93010; 99284

== ENCOUNTER 2020-08-16 22:42 | Emergency (ER) | payer MEDICAID ==
--- NOTE | 2020-08-16 23:24 | EDM.PDOC ---
ED HPI GENERAL MEDICAL PROBLEM - General Chief Complaint: Respiratory Problem Stated Complaint: SOB Time Seen by Provider: 08/16/20 22:53 Source of Information: Reports: Patient History Limitations: Reports: No Limitations - History of Present Illness INITIAL COMMENTS - FREE TEXT/NARRATIVE: Ms. Debbie Griffith is a pleasant 20-year-old woman with a past medical history significant for anxiety and depression, currently treated with hydroxyzine (Atarax) alone, who, medical records indicate, was seen in this ED on 08/01/2020 with a complaint at that time of chest pain, nausea, and vomiting for 2 hours. No recent fever or dyspnea. She was found to be anxious and hyperventilating, with an oxygen saturation of 100% on room air. Her work-up was unremarkable, and she was discharged home with a any prescriptions. She now returns to the ED stating that she has had dyspnea, nausea, vomiting, watery diarrhea, and sternal and midline back pain, all since 08/04/2020. She describes the back pain as stabbing in character. She states that it comes and goes, typically lasting a few hours, then recurring about twice a day. She has not identified any modifiers. No recent fever or cough. She states that she has had this pain many times in the past, and been diagnosed with panic attacks. The patient is concerned, because she states that her boyfriend, with whom she lives, was diagnosed with COVID-19 about 2 weeks ago, and they live together. Here in the ED, the patient is found to be slightly bradycardic at 59 bpm, otherwise, she is hemodynamically stable, afebrile, saturating 98 to 100% on room air. Prior to Monday, the patient denies having a recent fever, chills, sore throat, ear pain, nasal or sinus congestion, cough, dyspnea, chest pain, palpitations, nausea, vomiting, constipation, diarrhea, abdominal pain, urinary symptoms, recent weight gain or weight loss, recent bloody bowel movements or black bowel movements, recent joint aches, headaches, or rashes. The patient does not recall the name of her PCP. Upper Back Pain Score (Numeric/FACES): 10 - Related Data Allergies Allergy/AdvReac Type Severity Reaction Status Date / Time No Known Allergies Allergy Verified 08/16/20 22:48 Home Meds: Home Meds hydrOXYzine HCL [Atarax] 25 mg PO Q6H PRN 08/16/20 [History] Past Medical History HEENT History: Reports: Impaired Vision (wears glasses) : 2 Para: 2 Psychiatric History: Reports: Anxiety, Depression - Past Surgical History Other Surgical History Comment: No past surgical history Social & Family History - Family History Family Medical History: Noncontributory - Tobacco Use Smoking Status *Q: Former Smoker Tobacco Use Within Last Twelve Months: Vaping (Nicotine) Years of Tobacco use: 2 Packs/Tins Daily: 0.1 Month/Year Tobacco Last Used: Quit early 2019 - Caffeine Use Caffeine Use: Reports: Coffee - Alcohol Use Alcohol Use History: Yes Alcohol Use Frequency: Socially - Recreational Drug Use Recreational Drug Use: Yes Drug Use in Last 12 Months: Yes Recreational Drug Type: Reports: Marijuana/Hashish (smokes about 2x/week) - Living Situation & Occupation Living situation: Reports: Single, with Significant Other (Boyfriend), with Family (2 kids + her brother) Occupation: Unemployed ED ROS GENERAL - Review of Systems Review Of Systems: Comprehensive ROS is negative, except as noted in HPI. ED EXAM, GENERAL - Physical Exam Exam: See Below Exam Limited By: No Limitations General Appearance: Alert, WD/WN, Anxious Eye Exam: Bilateral Eye: EOMI, Normal Inspection Ears: Normal External Exam, Hearing Grossly Normal Nose: Normal Inspection Throat/Mouth: Normal Inspection, Normal Lips, Normal Voice, No Airway Compromise Head: Atraumatic, Normocephalic Neck: Normal Inspection, Full Range of Motion Respiratory/Chest: No Respiratory Distress, Lungs Clear, Normal Breath Sounds, No Accessory Muscle Use, Chest Non-Tender (including palpation of the sternum). No: Decreased Breath Sounds, Crackles, Rhonchi, Wheezing, Stridor, Prolonged Expiration Cardiovascular: Normal Peripheral Pulses, Regular Rate, Rhythm, No Edema, No Gallop, No JVD, No Murmur, No Rub Peripheral Pulses: 3+: Radial (L), Radial (R) GI/Abdominal: Normal Bowel Sounds, Soft, Non-Tender, No Organomegaly, No Distention, No Abnormal Bruit, No Mass Back Exam: Normal Inspection, Full Range of Motion, NT Extremities: Normal Inspection, Normal Range of Motion, No Pedal Edema, Normal Capillary Refill Neurological: Alert, Oriented, Normal Cognition, No Motor/Sensory Deficits Psychiatric: Anxious Skin Exam: Warm, Dry, Intact, Normal Color, No Rash Course - Vital Signs Last Recorded V/S: Last Vital Signs Temp 36.1 C 08/16/20 22:47 Pulse 59 L 08/16/20 22:47 Resp 17 08/16/20 22:47 BP 95/84 08/16/20 22:47 Pulse Ox 98 08/16/20 22:47 - Orders/Labs/Meds Orders: Active Orders 24 hr Category Date Time Status Chest 1V Frontal [CR] Stat Exams 08/16/20 22:55 Ordered CORONAVIRUS COVID-19 PCR [facility] Stat Lab 08/16/20 23:15 Ordered - Re-Assessments/Exams Free Text/Narrative Re-Assessment/Exam: 08/16/20 23:18 As above, the patient has been experiencing dyspnea, nausea, vomiting, watery diarrhea, and midline chest and midline back pain since 08/14/2020. No cough, and she has been afebrile. She is afebrile here in the ED, saturating 98 to 100% on room air. She appears to be quite anxious. Her physical exam is completely benign, including no reproducible tenderness to her sternum or spine. I explained to the patient that if her boyfriend is truly positive for COVID-19, then she almost certainly has it, as well, since she lives with him. She is being swabbed for the send-out test, which I anticipate will be positive, indeed, if it is negative, it is either due to a false negative, or her boyfriend's test being a false positive, and false negatives are for more common than false positives. We will also obtain a portable chest x-ray which I explained to the patient is intended as a baseline chest x-ray, in case her condition worsens. I have no anticipation that there will be any abnormalities on it today. There is no indication for any other testing at this time, as she would not qualify for treatment for COVID-19 with an oxygen saturation of 100% on room air. 08/16/20 23:33 Portable chest radiograph appears to be grossly normal. The cardiac silhouette is within normal limits. No pulmonary vascular congestion. No pleural effusions seen on this AP view. No focal infiltrate. No pneumothorax. Formal read per the Radiologist pending. I believe that the patient's current symptoms are due to a panic attack due to inadequately treated anxiety, therefore I recommended that she follow-up with her prescribing physician to discuss modifying the dose of her hydroxyzine or switching to a different antianxiety medicine, such as an SSRI. I will discharge the patient home. Departure - Departure Time of Disposition: 23:36 Disposition: Home, Self-Care 01 Condition: Good Clinical Impression: Panic attack, Close exposure to COVID-19 virus - Discharge Information *PRESCRIPTION DRUG MONITORING PROGRAM REVIEWED*: Not Applicable *COPY OF PRESCRIPTION DRUG MONITORING REPORT IN PATIENT MICHAELA: Not Applicable Referrals: PCP,None [Primary Care Provider] - Additional Instructions: You were seen in the emergency room for shortness of breath, nausea, vomiting, diarrhea, and both midline chest and back pain, since 08/04/2020. Work-up in the ER included a chest x-ray, and a swab for the SARS-CoV-2 virus. Your chest x-ray was completely normal, with no suggestion of pneumonia or a collapsed lung. You will be notified of the results of your swab for the SARS-CoV-2 virus within the next 24 to 48 hours, however, it may take a bit longer because of the weekend. Based on your history, physical exam, and ER chest x-ray, the cause of your sym ptoms is most likely a panic attack. We recommend that you follow-up with your PCP to discuss modification of your antianxiety medication. Because you live with your boyfriend who is positive for COVID-19, you should presume that you are positive as well. For that reason, you should quarantine until you test negative, which will likely take several weeks, but may take s everal months. If any other problems, please do not hesitate to return to the ER. Sepsis Event Note (ED) - Evaluation Sepsis Screening Result: No Definite Risk - Focused Exam Vital Signs: Vital Signs Temp Pulse Resp BP Pulse Ox 08/16/20 22:47 36.1 C 59 L 17 95/84 98 - My Orders Last 24 Hours: My Active Orders 08/16/20 22:55 Chest 1V Frontal [CR] Stat 08/16/20 23:15 CORONAVIRUS COVID-19 PCR [facility] Stat - Assessment/Plan Last 24 Hours: My Active Orders 08/16/20 22:55 Chest 1V Frontal [CR] Stat 08/16/20 23:15 CORONAVIRUS COVID-19 PCR PH[facility] Stat
--- NOTE | 2020-08-17 06:48 | CR ---
Chest: Portable view of the chest was obtained. Comparison: Prior chest x-ray of 08/01/20. Heart size and mediastinum are normal. Lungs are clear with no acute parenchymal change. Bony structures are grossly intact. Impression: 1. Nothing acute is seen on portable chest x-ray. Diagnostic code #1 This report was dictated in MDT
== END 2020-08-16 23:57 | disposition home or self-care (01) ==
LOC: JD.ED 22:42
DX: F41.0 Panic disorder [episodic paroxysmal anxiety] (principal); Z87.891 Personal history of nicotine dependence; Z20.828 Contact with and (suspected) exposure to other viral communicable diseases
CPT/HCPCS: 71045; 71045-26; 99282; 99285-25; U0002

== ENCOUNTER 2022-01-23 00:33 | Emergency (ER) | payer MEDICAID ==
[2022-01-23] MEDS: Ondansetron 4 MG Tab.DIS PO ONE (01:24)
[2022-01-23] MEDS: Ketorolac 15 MG/ML SDV IM ONE (01:24)
== END 2022-01-23 03:05 | disposition home or self-care (01) ==
LOC: JD.ED 00:33
DX: R07.9 Chest pain, unspecified (principal); F41.9 Anxiety disorder, unspecified
CPT/HCPCS: 93005; 96372; 99284; 99284-25; A9270-GY; J1885